=== PATIENT | male | born 1965 | race Caucasian/White ===

== ENCOUNTER 2020-03-07 14:42 | Emergency (ER) | payer BC ==
--- NOTE | 2020-03-07 16:07 | EDM.PDOC ---
ED HPI GENERAL MEDICAL PROBLEM - General Chief Complaint: Upper Extremity Injury/Pain Stated Complaint: PINCHED TWO FINGERS RIGHT HAND Time Seen by Provider: 03/07/20 14:53 Source of Information: Reports: Patient, RN Notes Reviewed - History of Present Illness INITIAL COMMENTS - FREE TEXT/NARRATIVE: 55 yr old male comes in with contussion injury distal middle and ring fingers that happened a short time ago. No bleeding, moderate pain, severe swelling and bruising. Left Finger-Middle Pain Score (Numeric/FACES): 5 Left Finger-Ring Pain Score (Numeric/FACES): 5 - Related Data Allergies Allergy/AdvReac Type Severity Reaction Status Date / Time No Known Allergies Allergy Verified 05/19/16 08:07 Past Medical History HEENT History: Reports: None Cardiovascular History: Reports: None Respiratory History: Reports: None Gastrointestinal History: Reports: None Genitourinary History: Reports: None Musculoskeletal History: Reports: None Neurological History: Reports: None Psychiatric History: Reports: None Endocrine/Metabolic History: Reports: None Hematologic History: Reports: None Immunologic History: Reports: None Oncologic (Cancer) History: Reports: None Dermatologic History: Reports: None Social & Family History - Tobacco Use Smoking Status *Q: Never Smoker - Caffeine Use Caffeine Use: Reports: Coffee, Tea - Recreational Drug Use Recreational Drug Use: No Review of Systems - Review of Systems Review Of Systems: See Below Constitutional: Reports: No Symptoms Respiratory: Reports: No Symptoms GI/Abdominal: Reports: No Symptoms Musculoskeletal: Reports: Other (pain and swelling distal R ring and middle fingers) Neurological: Reports: Numbness (distal ring and middle fingers) ED EXAM, GENERAL - Physical Exam Exam: See Below General Appearance: Alert, No Apparent Distress Head: Atraumatic Respiratory/Chest: No Respiratory Distress Extremities: Other (moderate swelling, tenderness, bruising distal part of distal phalanx middle and ring fingers r hand, no open laceration, partial distal subungual hematomas both distal fingers) Neurological: Alert, Oriented, No Motor/Sensory Deficits Course - Vital Signs Last Recorded V/S: Last Vital Signs Temp 97.7 F 03/07/20 14:51 Pulse 77 03/07/20 14:51 Resp 20 03/07/20 14:51 BP 132/96 H 03/07/20 14:51 Pulse Ox 99 03/07/20 14:51 - Orders/Labs/Meds Orders: Active Orders 24 hr Category Date Time Status Hand Comp Min 3V Rt [CR] Stat Exams 03/07/20 15:18 Taken - Re-Assessments/Exams Free Text/Narrative Re-Assessment/Exam: 03/07/20 16:11 X rays, nondisplaced transverse fractures distal distal phalanx of middle and ring fingers Departure - Departure Time of Disposition: 16:04 Disposition: Home, Self-Care 01 Condition: Fair Clinical Impression: Fracture, finger, distal phalanx Qualifiers: Encounter type: initial encounter Finger: middle finger Fracture type: closed Fracture alignment: nondisplaced Laterality: right Qualified Code(s): S62.662A - Nondisplaced fracture of distal phalanx of right middle finger, initial encounter for closed fracture Fracture of finger Qualifiers: Encounter type: initial encounter Finger: ring finger Fracture type: closed Phalanx: distal Fracture alignment: nondisplaced Laterality: right Qualified Code(s): S62.664A - Nondisplaced fracture of distal phalanx of right ring finger , initial encounter for closed fracture - Discharge Information Referrals: Pepe Bahena PA-C [Primary Care Provider] - Forms: ED Department Discharge Additional Instructions: ice packs and elevation as for swelling. finger splints for comfort and protection. Alternate motrin and tylenol as needed for discomfort. Follow up clinic or ED as needed. Sepsis Event Note - Evaluation Sepsis Screening Result: No Definite Risk - Focused Exam Vital Signs: Vital Signs Temp Pulse Resp BP Pulse Ox 03/07/20 14:51 97.7 F 77 20 132/96 H 99 Date Exam was Performed: 03/07/20 Time Exam was Performed: 16:07 - My Orders Last 24 Hours: My Active Orders 03/07/20 15:18 Hand Comp Min 3V Rt [CR] Stat - Assessment/Plan Last 24 Hours: My Active Orders 03/07/20 15:18 Hand Comp Min 3V Rt [CR] Stat
--- NOTE | 2020-03-08 06:05 | CR ---
Right hand: 3 views of the right hand were obtained. Comparison: No prior hand exam. Fractures are noted within the tuft of the distal right 3rd and 4th fingers. No additional fracture or other bony abnormality is identified. Impression: 1. Tuft fractures involving the distal 3rd and 4th right fingers. Diagnostic code #3 This report was dictated in MDT
== END 2020-03-07 16:17 | disposition home or self-care (01) ==
LOC: JD.ED 14:42
DX: S62.664A Nondisplaced fracture of distal phalanx of right ring finger, initial encounter for closed fracture (principal); S62.662A Nondisplaced fracture of distal phalanx of right middle finger, initial encounter for closed fracture; X58.XXXA Exposure to other specified factors, initial encounter
CPT/HCPCS: 73130-26-RT; 73130-RT; 99283; 99283-25

== ENCOUNTER 2021-05-18 06:16 | Emergency (ER) | payer BC ==
[2021-05-18] MEDS ORDERED: HYDROmorphone 1 MG/ML Syringe IM ONE (06:43)
[2021-05-18] MEDS ORDERED: Orphenadrine 100 MG Tab.ER PO STA (06:43)
[2021-05-18] MEDS ORDERED: Ibuprofen 600 MG Tab PO ONE (06:44)
--- NOTE | 2021-05-18 06:50 | EDM.PDOC ---
<Gualberto Maldonado - Last Filed: 05/18/21 07:11> ED HPI GENERAL MEDICAL PROBLEM - General Chief Complaint: Flank Pain Stated Complaint: KIDNEY STONE Time Seen by Provider: 05/18/21 06:33 Source of Information: Reports: Patient, Family () History Limitations: Reports: No Limitations - History of Present Illness INITIAL COMMENTS - FREE TEXT/NARRATIVE: Mr. Godinez is a very pleasant 56-year-old gentleman who now presents the ED stating that he developed a relatively minor lower left back pain, without radiation, this past , 05/12/2021. The pain initially came and went, however, over the weekend it progressively got worse. It is dull if he remains perfectly still, however, it becomes stabbing/crampy/muscle spasm-like if he moves even a little bit. He took 2 tablets of acetaminophen last night at bedtime, without improvement of his symptoms. This morning he is barely able to move, in fact, was unable to get out of the wheelchair onto the gurney here in the ED. He denies having urinary symptoms, although he thought that his symptoms may be due to a kidney stone, therefore he has been drinking a lot of fluids, and has therefore been urinating frequently. No recent fever or other constitutional symptoms. No prior similar symptoms. Here in the ED, the patient's initial BP is found to be mildly elevated at 146/90, otherwise, he is hemodynamically stable, afebrile, saturating 99% on room air. He appears to be relatively comfortable, so long as he is not moving, while seated in a wheelchair in the exam room. Prior to , the patient denies having a recent fever, chills, sore throat, ear pain, nasal or sinus congestion, cough, dyspnea, chest pain, palpitations, nausea, vomiting, constipation, diarrhea, abdominal pain, urinary symptoms, recent weight gain or weight loss, recent bloody bowel movements or black bowel movements, recent joint aches, headaches, or rashes. The patient's PCP is KISHOR Caicedo. Left Flank Pain Score (Numeric/FACES): 10 - Related Data Allergies Allergy/AdvReac Type Severity Reaction Status Date / Time No Known Allergies Allergy Verified 05/18/21 06:23 Home Meds: Home Meds Cyclobenzaprine [Flexeril] 10 mg PO TID PRN #20 tab 05/18/21 [Rx] Hydrocodone/Acetaminophen [Hydrocodone-Acetamin 5-325 mg] 1 - 2 each PO Q6H PRN #15 tablet 05/18/21 [Rx] Past Medical History Cardiovascular History: Reports: High Cholesterol (untreated) Gastrointestinal History: Reports: GERD (treats prn) Endocrine/Metabolic History: Reports: Obesity/BMI 30+ - Infectious Disease History Infectious Disease History: Reports: Chicken Pox, Measles, Novel Coronavirus - Past Surgical History HEENT Surgical History: Reports: Oral Surgery (dental extractions) Musculoskeletal Surgical History: Reports: Ganglion Cyst (right wrist), Other (See Below) (Right elbow tendon repair. Right 2nd finger tendon repair.) Social & Family History - Tobacco Use Tobacco Use Status *Q: Never Tobacco User Second Hand Smoke Exposure: No - Caffeine Use Caffeine Use: Reports: Coffee, Tea - Alcohol Use Alcohol Use History: Yes Alcohol Use Frequency: Rarely - Recreational Drug Use Recreational Drug Use: No - Living Situation & Occupation Living situation: Reports: , with Spouse Occupation: Employed (Physics Professor) ED ROS GENERAL - Review of Systems Review Of Systems: Comprehensive ROS is negative, except as noted in HPI. ED EXAM,LOWER BACK PAIN/INJURY - Physical Exam Exam: See Below Exam Limited By: No Limitations General Appearance: Alert, WD/WN, No Apparent Distress Eye Exam: Bilateral Eye: EOMI, Normal Inspection Ears: Normal External Exam, Hearing Grossly Normal Nose: Normal Inspection Throat/Mouth: Normal Inspection, Normal Lips, Normal Voice, No Airway Compromise Head: Atraumatic, Normocephalic Neck: Normal Inspection, Full Range of Motion Respiratory/Chest: No Respiratory Distress, Lungs Clear, Normal Breath Sounds, No Accessory Muscle Use Cardiovascular: Normal Peripheral Pulses, Regular Rate, Rhythm, No Gallop, No JVD, No Murmur, No Rub GI/Abdominal: Normal Bowel Sounds, Soft, Non-Tender, No Organomegaly, No Distention, No Abnormal Bruit, No Mass Back Exam: Muscle Spasm (left paraspinous muscle at L5/sacral level). No: CVA Tenderness (L), CVA Tenderness (R) Extremities: Normal Inspection, Normal Range of Motion, Normal Capillary Refill Neurological: Alert, Normal Dorsiflexion, Normal Plantar Flexion, No Motor/Sensory Deficits, Oriented x 3 Psychiatric: Normal Affect Skin Exam: Warm, Dry, Intact, Normal Color, No Rash Course - Re-Assessments/Exams Free Text/Narrative Re-Assessment/Exam: 05/18/21 06:44 As above, the patient developed relatively mild lower left back pain this past , made worse with movement, which has progressively gotten worse, to the point that he was unable to get out of a wheelchair onto the gurney here in the ED. On examination, he has reproducible tenderness to the left paraspinous musculature just lateral to his L5/sacrum. No tenderness to palpation over the spinous processes themselves, and no significant tenderness elsewhere. No CVA tenderness. The patient's pain appears to be due to a muscle spasm. Because the patient was not in impression that his symptoms were due to a ureterolith, I will take a look at a urinalysis, but my suspicion for a ureterolith is very low. Because the patient has not had a fever or radiation of his pain anywhere, I do not see an indication for further work-up here in the ED today. The patient will be treated with IM Dilaudid, oral Norflex, and oral ibuprofen. 05/18/21 07:11 The patient is just now trying to provide a urine sample. Case discussed with Dr. Parham, and care of the patient turned over to him at this time, for change of shift. Departure - Departure Disposition: Home, Self-Care 01 Clinical Impression: Low back pain Qualifiers: Chronicity: acute Back pain laterality: left Sciatica presence: without sciatica Qualified Code(s): M54.5 - Low back pain - Discharge Information Prescriptions: Cyclobenzaprine [Flexeril] 10 mg PO TID PRN #20 tab PRN Reason: Pain Hydrocodone/Acetaminophen [Hydrocodone-Acetamin 5-325 mg] 1 - 2 each PO Q6H PRN #15 tablet PRN Reason: Pain Referrals: Pepe Bahena PA-C [Primary Care Provider] - 1 Week Forms: ED Department Discharge, ED Return to Work/School Form Additional Instructions: Take an antiinflammatory like motrin or aleve. Take the flexeril every 8 hour as needed for back pain. Take the hydrocodone as needed for pain. Use ice or heat on your back, which ever one feels better. Follow up with Pepe Bahena within a week. Follow up with physical therapy. There are a few options in town. Please return if you are worse. Sepsis Event Note (ED) - Evaluation Sepsis Screening Result: No Definite Risk <Jorden Parham - Last Filed: 05/18/21 08:51> Course - Vital Signs Last Recorded V/S: Last Vital Signs Temp 97.4 F 05/18/21 06:20 Pulse 77 05/18/21 06:20 Resp 20 05/18/21 06:20 BP 146/90 H 05/18/21 06:20 Pulse Ox 99 05/18/21 06:20 - Orders/Labs/Meds Orders: Active Orders 24 hr Category Date Time Status CBC WITH AUTO DIFF [HEME] Stat Lab 05/18/21 06:30 Received CMP [COMPREHENSIVE METABOLIC PN,CMP] [CHEM] Stat Lab 05/18/21 06:30 Received Labs: Laboratory Tests 05/18/21 Range/Units 07:10 Urine Color Yellow (Yellow) Urine Appearance Clear (Clear) Urine pH 6.5 (5.0-8.0) Ur Specific [place] 1.025 (1.005-1.030) Urine Protein Negative (Negative) Urine Glucose (UA) Negative (Negative) Urine Ketones Negative (Negative) Urine Occult Blood Trace-intact H (Negative) Urine Nitrite Negative (Negative) Urine Bilirubin Negative (Negative) Urine Urobilinogen 0.2 (0.2-1.0) Ur Leukocyte Esterase Negative (Negative) Urine RBC 0-5 (0-5) /hpf Urine WBC 0-5 (0-5) /hpf Ur Squamous Epith Cells 0-5 (0-5) /hpf Urine Bacteria Occasional (FEW) /hpf Urine Mucus Not seen (FEW) /hpf Meds: Medications Discontinued Medications Generic Name Dose Route Start Last Admin Trade Name Freq PRN Reason Stop Dose Admin Hydromorphone HCl 1 mg 05/18/21 06:43 05/18/21 06:50 Hydromorphone 1 Mg/Ml Syringe IM 05/18/21 06:44 1 mg ONETIME ONE Administration Ibuprofen 600 mg 05/18/21 06:44 05/18/21 06:50 Ibuprofen 600 Mg Tab PO 05/18/21 06:45 600 mg ONETIME ONE Administration Orphenadrine Citrate 100 mg 05/18/21 06:43 05/18/21 06:50 Orphenadrine 100 Mg Tab.Er PO 05/18/21 06:44 100 mg ONETIME STA Administration - Re-Assessments/Exams Free Text/Narrative Re-Assessment/Exam: 05/18/21 08:42 His UA did have some blood. A CT abdominal and pelvis without contrast was ordered. The CT shows no renal calculi, ureteral dilatation or ureteral stone is seen. Fatty infiltration within the liver. Other findings believed to be nonacute. 05/18/21 08:46 He feels a little better. I will get him on some flexeril, antiinflammatory and hydrocodone. Departure - Departure Time of Disposition: 08:50 Condition: Good - Discharge Information *PRESCRIPTION DRUG MONITORING PROGRAM REVIEWED*: Not Applicable *COPY OF PRESCRIPTION DRUG MONITORING REPORT IN PATIENT CELIA: Not Applicable Sepsis Event Note (ED) - Focused Exam Vital Signs: Vital Signs Temp Pulse Resp BP Pulse Ox 05/18/21 06:20 97.4 F 77 20 146/90 H 99 - My Orders Last 24 Hours: My Active Orders 05/18/21 06:30 CBC WITH AUTO DIFF [HEME] Stat CMP [COMPREHENSIVE METABOLIC PN,CMP] [CHEM] Stat - Assessment/Plan Last 24 Hours: My Active Orders 05/18/21 06:30 CBC WITH AUTO DIFF [HEME] Stat CMP [COMPREHENSIVE METABOLIC PN,CMP] [CHEM] Stat
--- NOTE | 2021-05-18 08:32 | CT ---
CT abdomen and pelvis Technique: Multiple axial sections were obtained from above the dome of the diaphragm inferiorly through the pubic symphysis. Intravenous and oral contrast were not utilized. Study has been performed as a renal stone protocol. Comparison: Prior noncontrast CT abdomen and pelvis exam of 05/19/16 is available. Findings: Kidneys show no abnormal calcifications. No hydronephrosis or ureteral dilatation is seen. No ureteral calculi are seen. Visualized lung bases show nothing acute. Adrenal glands show no nodule. Pancreas appears within normal limits. Accessory splenic tissue is noted to the medial spleen. Spleen size is normal. Liver shows diffuse fatty infiltration. Gallbladder contains no calcified gallstones. Small hiatal hernia is noted. Abdominal aorta shows no aneurysm. No retroperitoneal adenopathy or mesenteric abnormalities are seen. Small fat-containing umbilical hernia is noted. Appendix is seen which is normal in size. No pelvic mass or adenopathy is seen. No free fluid or inflammatory change is appreciated. No bowel dilatation is seen. Bone window settings were reviewed which show minimal scattered degenerative change within the spine. No acute osseous abnormality is appreciated. Impression: 1. No renal calculi, ureteral dilatation or ureteral stone is seen. 2. Fatty infiltration within the liver. 3. Other findings believed to be nonacute as noted above. Diagnostic code #2
== END 2021-05-18 09:21 | disposition home or self-care (01) ==
LOC: JD.ED 06:16
DX: M54.5 Low back pain (principal); E66.9 Obesity, unspecified; Z68.34 Body mass index [BMI] 34.0-34.9, adult
CPT/HCPCS: 36415; 74176; 80053; 81001; 85025; 96372; 99284; A9270; J1170; 99283